=== PATIENT | male | born 1955 | race Caucasian/White ===

== ENCOUNTER → 2017-06-05 | Outpatient (CLI) | payer BC ==
--- NOTE | 2017-06-05 13:39 | NM ---
EXAMINATION TYPE: NM stress cardiolite complete DATE OF EXAM: 06/05/2017 COMPARISON: NONE HISTORY: 62-year-old male with unspecified right bundle branch block TECHNIQUE: After the intravenous administration of 10.86 mCi Tc 99m Cardiolite- Rest images obtained 45 minutes post injection. The patient exercised using a BOOKER protocol and 1 minute prior to peak exercise was injected with 29.3 mCi Tc 99m Cardiolite- Stress images obtained 12 minutes post inject ion. FINDINGS: Targeted heart rate was achieved during performance of the study. Review of stress and rest SPECT justine ges demonstrates fixed decreased perfusion along the inferior wall. Gated analysis, however, suggests appropriate thickening of the inferior wall. Estimated left ventricular ejection fraction of 64 %. TID is calculated at 0.92, within normal limits. IMPRESSION: Fixed perfusion abnormality along the inferior wall suspected to relate to diaphragmatic attenuation as the wall appears to appropriately thicken during contractions. EKG correlation recommended. No sci ntigraphic evidence for inducible ischemia.
--- NOTE | 2017-06-05 21:01 | EST ---
EXERCISE STRESS AGE: 62 SEX: M HT: 66" WT: 160 PROTOCOL: Cardiolite Radu STAGE: 4 DURATION OF EXERCISE: 11:00 HEART RATE REST: 57 BLOOD PRESSURE REST: 138/89 MAXIMUM HEART RATE ACHIEVED: 144 MAXIMUM BLOOD PRESSURE: 220/87 85% MPHR: 135 100% MPHR: 159 METS: 12.1 CLINICAL INFORMATION: Baseline heart rate 57 beats per minute. Baseline blood pressure 138/89 mmHg. Patient exercised on Radu protocol for 11 minute. He had a mildly hypertensive response to exercise, 220/87 mmHg. Peak heart rate 145 beats per minute. There was no ECG evidence for ischemia. No arrhythmias were noted. Nuclear portion of the stress test will be reported separately. IMPRESSION: 1. Good exercise capacity. 2. No ECG evidence for ischemia or arrhythmia. MMODL / IJN: [id number] /
== END | disposition home or self-care (01) ==
LOC: RADNMMAIN 08:30
PROVIDERS: ATTEND Family Medicine
DX: I45.10 Unspecified right bundle-branch block (principal)
CPT/HCPCS: 93017; 78452; A9500

== ENCOUNTER 2019-06-16 09:50 | Day surgery (SDC) | payer BC ==
[2019-06-10 15:46] VITALS: BMI 25.9
[~2019-06-16 09:50] MED LIST: LACTATED RINGERS 1,000 ML IV SCH; LIDOCAINE 1% 20 ML VIAL (10MG/ML) FOR IV START INTRADERMA PRN; ONDANSETRON 4 MG/2 ML VIAL IVP PRN; TETRACAINE 0.5% OPHTH (PF) DROPS 4 ML BTL OP ONE
[2019-06-16] MEDS: CYCLOPENTOLATE 1% OPHTH SOLN 2 ML BTL OP ONE ×3 (10:32→10:48)
[2019-06-16] MEDS: PHENYLEPHRINE 2.5% OPHTH DRP 2ML OP NR ×3 (10:37→10:51)
[2019-06-16 10:42] VITALS: TEMP 98.1
[2019-06-16] MEDS ORDERED: fentaNYL (PF) 50 MCG/ML 2 ML AMP ONE (11:12)
[2019-06-16] MEDS ORDERED: MIDAZOLAM 2 MG/2 ML VIAL ONE (11:12)
[2019-06-16] MEDS ORDERED: HYALURONATE SODIUM INTRAOCULAR 1 EACH SYRINGE (12MG/ML) INTRAOCULA ONE ×2 (11:18→11:30)
[2019-06-16] MEDS: MOXIFLOXACIN HCL 0.5% DROPS 3 ML BTL OP ONE ×2 (11:18→11:39)
[2019-06-16] MEDS: TIMOLOL 0.5% OPHTH DROPS 5 ML BTL OP ONE ×2 (11:18→11:39)
[2019-06-16] MEDS ORDERED: LIDOCAINE 1% (PF) 10MG/ML VIAL INTRAARTIC ONE ×2 (11:18→11:30)
[2019-06-16] MEDS ORDERED: BALANCED SALT IRRIG SOLN COMB2 15 ML IRRIG.SOLN IRRIGATION ONE ×2 (11:18→11:30)
[2019-06-16] MEDS ORDERED: EPINEPHrine (PF) 0.3 ML in BALANCED SALT IRRIG SOLN COMB2 500 ML IRRIGATION ONE ×4 (11:20)
[2019-06-16] MEDS ORDERED: ATROPINE SULFATE 0.4 MG/ML 1 ML VIAL SQ ONE ×2 (11:26→11:39)
--- NOTE | 2019-06-16 11:52 | P.OP ---
Date of Procedure: 06/16/19 Preoperative Diagnosis: NS & CS Postoperative Diagnosis: same Procedure(s) Performed: PIOL, OD Implants: AO1UV 21.50 Anesthesia: MAC Surgeon: Jose Howard Estimated Blood Loss (ml): 0 Pathology: none sent Condition: stable Disposition: same day Indications for Procedure: blurry vision Operative Findings: no complications
[2019-06-16 12:53] VITALS: BP 133/83; PULSE 49; RESP 16
--- NOTE | 2019-06-16 23:25 | OP ---
OPERATIVE REPORT DATE OF SURGERY: 06/16/2019 PROCEDURE: Phacoemulsification of cataract and intraocular lens implant of the right eye using a Crystalens. PREOPERATIVE DIAGNOSES: Nuclear sclerosis and cortical sclerosis. NARRATIVE: After obtaining the appropriate consent, the patient was brought to the operating room. There the patient was placed under cardiac monitoring, prepped and draped in the usual sterile manner. The patient was approached from the right temporal side. The 5.5 mm Leslie ring inked in gentian chanda was placed centrally on the cornea. At the 11 o'clock position, a 1.1 mm keratome was used to create a paracentesis port. Through this opening, 1% Xylocaine MPF 50/50 mix with balanced salt solution was injected into the anterior chamber. This was followed by stabilization of the anterior chamber with Amvisc viscoelastic. At the 9 o'clock position, a 2.75 mm harlan keratome was used to create a self-scaling corneal flap incision in a Langerman fashion. Through this opening, a cystotome was introduced to begin a continuous tear capsulorrhexis which was completed using the Utrata forceps. Care was taken to ensure that the capsulorrhexis was at least the size of the harley on the anterior cornea. Hydrodissection and hydrodelineation of the lens was accomplished with balanced salt solution. Phacoemulsification of the lens utilizing phaco chop was accomplished in 2.33 seconds at 12% power. Additional Xylocaine MPF was instilled into the anterior chamber. This was followed by removal of the remaining cortex under irrigation and aspiration along with careful polishing of the posterior capsule in a capsule vacuum mode. Additional Amvisc viscoelastic was then used to stabilize the capsular bag, and a Bausch and Lomb Crystalens AO1UV 21.5 diopter intraocular lens was injected into the capsular bag without difficult. The lens was rotated 270 degrees so that the haptics resided at the 6 and 12 o'clock positions, and all remaining viscoelastic was then removed from within the capsular bag and around the anterior chamber. The eye was brought to normal intraocular pressure through the paracentesis port along with slight hydration of the incision sites. Watertight integrity was confirmed using a fluorescein strip. The patient then received 2 drops of 0.5% timolol followed by 2 drops of Vigamox and 2 drops of 1% atropine. The patient was then lightly patched and shielded in the usual manner. There was no complications from the procedure. The patient tolerated the procedure well and was returned to outpatient recovery in good condition. JACKIE / KIMBERLYN: [id number] / RAHUL
== END 2019-06-16 12:55 | disposition home or self-care (01) ==
LOC: OR 09:50
PROVIDERS: ATTEND Ophthalmology
DX: H25.813 Combined forms of age-related cataract, bilateral (principal); H00.026 Hordeolum internum left eye, unspecified eyelid; H00.023 Hordeolum internum right eye, unspecified eyelid; H00.11 Chalazion right upper eyelid; Z98.890 Other specified postprocedural states; Z83.518 Family history of other specified eye disorder; Z82.61 Family history of arthritis; Z80.9 Family history of malignant neoplasm, unspecified; Z82.49 Family history of ischemic heart disease and other diseases of the circulatory system; Z97.2 Presence of dental prosthetic device (complete) (partial)
CPT/HCPCS: 66984; V2632; V2788; J2250; J0461; J0171; J3010; J2001

== ENCOUNTER 2019-07-21 10:11 | Day surgery (SDC) | payer BC ==
[2019-07-19 12:41] VITALS: BMI 25.8
[~2019-07-21 10:11] MED LIST changes: +MOXIFLOXACIN HCL 0.5% DROPS 3 ML BTL OP ONE; -ONDANSETRON 4 MG/2 ML VIAL IVP PRN; +TETRACAINE 0.5% OPHTH (PF) DROPS 4 ML BTL OP NR; -TETRACAINE 0.5% OPHTH (PF) DROPS 4 ML BTL OP ONE; +TIMOLOL 0.5% OPHTH DROPS 5 ML BTL OP ONE
[2019-07-21 10:34] VITALS: TEMP 97.5
[2019-07-21] MEDS: CYCLOPENTOLATE 1% OPHTH SOLN 2 ML BTL OP NR ×3 (10:40→10:54)
[2019-07-21] MEDS: PHENYLEPHRINE 2.5% OPHTH DRP 2ML OP NR ×3 (10:43→10:59)
[2019-07-21] MEDS ORDERED: MIDAZOLAM 2 MG/2 ML VIAL ONE (12:45)
[2019-07-21] MEDS ORDERED: fentaNYL (PF) 50 MCG/ML 2 ML AMP ONE (12:45)
[2019-07-21] MEDS ORDERED: BALANCED SALT IRRIG SOLN COMB2 15 ML IRRIG.SOLN IRRIGATION ONE (12:54)
[2019-07-21] MEDS ORDERED: LIDOCAINE 1% (PF) 10MG/ML VIAL SQ ONE (12:54)
[2019-07-21] MEDS ORDERED: HYALURONATE SODIUM INTRAOCULAR 1 EACH SYRINGE (12MG/ML) INTRAOCULA ONE (12:54)
[2019-07-21] MEDS ORDERED: EPINEPHrine (PF) 0.3 ML in BALANCED SALT IRRIG SOLN COMB2 500 ML IRRIGATION ONE (12:55)
--- NOTE | 2019-07-21 13:22 | P.OP ---
Date of Procedure: 07/21/19 Preoperative Diagnosis: NS & CS & PSC Postoperative Diagnosis: same Procedure(s) Performed: PIOL, OS Implants: AO1UV 21.50 Anesthesia: MAC Surgeon: Jose Howard Pathology: none sent Condition: stable Disposition: same day Indications for Procedure: blurring vision Operative Findings: no complications
[2019-07-21 13:39] VITALS: BP 143/86; PULSE 57; RESP 20
--- NOTE | 2019-07-22 06:11 | OP ---
OPERATIVE REPORT DATE OF SURGERY: 07/21/2019. SURGEON: Jose Howard MD PREOPERATIVE DIAGNOSES: Nuclear sclerosis, cortical sclerosis, posterior subcapsular cataract. POSTOPERATIVE DIAGNOSIS: Nuclear sclerosis, cortical sclerosis, posterior subcapsular cataract. OPERATION: Phacoemulsification of cataract and intraocular lens implant of the left eye using a Crystalens. NARRATIVE: After obtaining the appropriate consent, the patient was brought to the operating room. There the patient was placed under cardiac monitoring, prepped and draped in the usual sterile manner. The patient was approached from the left temporal side. The 5.5 mm Leslie ring inked in gentian chanda was placed centrally on the cornea. At the 5 o'clock position, a 1.1 mm keratome was used to create a paracentesis port. Through this opening, 1% Xylocaine MPF 50/50 mix with balanced salt solution was injected into the anterior chamber. This was followed by stabilization of the anterior chamber with Amvisc viscoelastic. At the 3 o'clock position, a 2.75 mm harlan keratome was used to create a self-scaling corneal flap incision in a Langerman fashion. Through this opening, a cystotome was introduced to begin a continuous tear capsulorrhexis which was completed using the Utrata forceps. Care was taken to ensure that the capsulorrhexis was at least the size of the harley on the anterior cornea. Hydrodissection and hydrodelineation of the lens was accomplished with balanced salt solution. Phacoemulsification of the lens utilizing phaco chop was accomplished in 5.42 seconds at 11% power. Addition Xylocaine MPF was instilled into the anterior chamber. This was followed by removal of the remaining cortex under irrigation and aspiration along with careful polishing of the posterior capsule in a capsule vacuum mode. Additional Amvisc viscoelastic was then used to stabilize the capsular bag, and the Bausch and Lomb Crystalens AO1UV 21.5 diopters intraocular lens was injected into the capsular bag without difficult. The lens was rotated 270 degrees so that the haptics resided at the 6 and 12 o'clock positions, and all remaining viscoelastic was then removed from within the capsular bag and around the anterior chamber. The eye was brought to normal intraocular pressure through the paracentesis port along with slight hydration of the incision sites. Watertight integrity was confirmed using a fluorescein strip. The patient then received 2 drops of 0.5% timolol followed by 2 drops of Vigamox and 2 drops of 1% atropine. The patient was then lightly patched and shielded in the usual manner. There was no complications from the procedure. The patient tolerated the procedure well and was returned to outpatient recovery in good condition. JACKIE / KIMBERLYN: [id number] / MTDD
== END 2019-07-21 13:53 | disposition home or self-care (01) ==
LOC: OR 10:11
PROVIDERS: ATTEND Ophthalmology
DX: H25.12 Age-related nuclear cataract, left eye (principal); H25.013 Cortical age-related cataract, bilateral; H00.026 Hordeolum internum left eye, unspecified eyelid; H00.023 Hordeolum internum right eye, unspecified eyelid; Z96.1 Presence of intraocular lens; Z97.3 Presence of spectacles and contact lenses; Z97.2 Presence of dental prosthetic device (complete) (partial); Z80.9 Family history of malignant neoplasm, unspecified; Z82.49 Family history of ischemic heart disease and other diseases of the circulatory system; Z82.61 Family history of arthritis; Z79.899 Other long term (current) drug therapy
CPT/HCPCS: 66984; V2632; V2788; J2250; J0171; J3010; J2001